=== PATIENT | female | born 1975 | race Caucasian/White ===

== ENCOUNTER 2017-03-02 08:57 | Emergency (ER) | payer BC, OTHER ==
[~2017-03-02] VITALS: Ht 172.7 cm; Wt 100.0 kg
[~2017-03-02 08:57] MED LIST: DARV PO; NAPR500 PO; Z.0.NO CURRENT MEDS
[2017-03-02 08:58] VITALS: BP 161/95; PULSE 84; RESP 18; TEMP 97.8; O2SAT 100
[2017-03-02] MEDS ORDERED: AMLO5TAB2 PO (09:10)
[2017-03-02] MEDS ORDERED: VALS1TAB70 PO (09:10)
[2017-03-02] MEDS ORDERED: METF1000 PO (09:10)
[2017-03-02] MEDS ORDERED: PRED10PA PO (09:15)
[2017-03-02] MEDS ORDERED: TRIAM.1%T TOPICAL (09:15)
[2017-03-02] MEDS ORDERED: methylPREDNISolone SOD SUCC 125 MG/2 ML VIAL IM ONE (09:15)
--- NOTE | 2017-03-02 09:16 | PD ---
HPI Chief Complaint: Skin Problem Time Seen by Provider: 09:07 Travel History International Travel<30 days: No Contact w/Intl Traveler<30days: No Traveled to known affect area: No History of Present Illness HPI Patient presents with complaints of a rash with blister formation on her bilateral calves. Initially noted redness and itching Friday morning. Noted blisters this morning. Denies any known exposure denies any harris denies any nausea vomiting diarrhea or fever PFSH Past Medical History Asthma: Yes Diminished Hearing: No ?: Not LMP: 6 : 4 Para: 2 Ectopic : Yes Tubal Ligation: Yes Past Surgical History Gynecologic Surgery: Yes (bilat fallopian tubes and partial left ovary removed. ) Social History Alcohol Use: No Tobacco Use: No Substance Use: No Allergies-Medications (Allergen,Severity, Reaction): Coded Allergies: aspirin (Unverified Allergy, Severe, SOB/HIVES, 03/02/17) ceftriaxone (Unverified Allergy, Mild, HIVES, ITCHING, 03/02/17) penicillin G (Unverified Allergy, Unknown, UNKNOWN, 03/02/17) Reported Meds & Prescriptions Reported Meds & Active Scripts Active Naprosyn (Naproxen) 500 Mg Tab 500 Mg PO BIDPRN Darvocet-N 100 (Propoxyphene Napsylate/Acetam) Tab 1 Tab PO Q4-6HPRN FOR PAIN Reported No Current Meds (Miscellaneous Medication) Misc Review of Systems General / Constitutional: No: Fever Eyes: No: Visual changes HENT: No: Headaches Cardiovascular: No: Chest Pain or Discomfort Respiratory: No: Shortness of Breath Gastrointestinal: No: Abdominal Pain Genitourinary: No: Dysuria Musculoskeletal: No: Pain Skin: Positive Rash, Positive Itching Neurologic: No: Weakness Psychiatric: No: Depression Endocrine: No: Polydipsia Hematologic/Lymphatic: No: Easy Bruising Physical Exam Narrative GENERAL: Well-nourished, well-developed patient. SKIN: Focused skin assessment warm/dry. HEAD: Normocephalic. EYES: No scleral icterus. No injection or drainage. NECK: Supple, trachea midline. No JVD or lymphadenopathy. CARDIOVASCULAR: Regular rate and rhythm without murmurs, gallops, or rubs. RESPIRATORY: Breath sounds equal bilaterally. No accessory muscle use. GASTROINTESTINAL: Abdomen soft, non-tender, nondistended. MUSCULOSKELETAL: No cyanosis, or edema. BACK: Nontender without obvious deformity. No CVA tenderness. Examination bilateral calves reveals redness with contact dermatitis including clothing demarcation Data Data Last Documented VS Vital Signs Date Time Temp Pulse Resp B/P (MAP) Pulse Ox O2 Delivery O2 Flow Rate FiO2 03/02/17 08:58 97.8 84 18 161/95 (117) 100 Orders Orders Methylprednisolone So Succ Inj (Solumedr (03/02/17 09:15) MDM Medical Decision Making Medical Screen Exam Complete: Yes Emergency Medical Condition: Yes Differential Diagnosis Contact dermatitis, cellulitis abscess formation, secondary burn Narrative Course Assessment and plan discussed with patient and at bedside Diagnosis Primary Impression: Contact dermatitis Qualified Codes: L25.9 - Unspecified contact dermatitis, unspecified cause Patient Instructions: General Instructions Additional Instructions: Encouraged to keep area clean and dry. Follow-up with PCP. Return to emergency room with any onset of new symptoms. Med/Other Pt SpecificInfo: Prescription(s) given Scripts Triamcinolone Topical (Triamcinolone Topical) 0.1 % Oint 1 APPLIC TOPICAL BID for Inflammation for 5 Days, GM 0 Refills Prov: Dutch Bridges MD 03/02/17 Prednisone (21) 10 mg tab Dose Pack (Prednisone (21) 10 mg tab Dose Pack) 10 Mg Pack 10 MG PO DIRECTED for Inflammation, #1 DSPK 0 Refills Prov: Dutch Bridges MD 03/02/17 Disposition: 01 DISCHARGE HOME Condition: Good Dutch Bridges MD Mar 02, 2017 09:16
== END 2017-03-02 09:36 | disposition home or self-care (01) ==
LOC: PHED 08:57
DX: L25.9 Unspecified contact dermatitis, unspecified cause (principal); Z87.09 Personal history of other diseases of the respiratory system; Z87.42 Personal history of other diseases of the female genital tract
CPT/HCPCS: 96372; 99284; J2930